=== PATIENT | male | born 1975 | race Caucasian/White ===

== ENCOUNTER 2022-12-30 12:01 | Observation (INO) | payer BC, SELFPAY ==
--- NOTE | ~2022-12-30 | XR_ITS ---
EXAMINATION: XR chest 2V DATE: 12/31/2022 08:06 INDICATION: Rib fractures and pneumothorax TECHNIQUE: frontal and lateral views of the chest were obtained. COMPARISON: Chest radiograph and CT dated 12/30/2022 FINDINGS: Persistent streaky atelectasis at the left lung base. Right lung remains clear. No pleural effusion o r pneumothorax. Heart size is within normal limits for AP technique. Median sternotomy wires and medi astinal surgical clips are seen, likely from prior coronary artery bypass grafting. IMPRESSION: 1. Persistent left basilar atelectasis. No pneumothorax or other acute cardiopulmonary disease. Reviewed, dictated and finalized at location A. IMPRESSION: 1. Persistent left basilar atelectasis. No pneumothorax or other acute cardiopu lmonary disease.
--- NOTE | ~2022-12-30 | XR_ITS ---
EXAMINATION: XR ribs LT 2V DATE: 12/30/2022 12:31 INDICATION: Left chest injury. TECHNIQUE: 2 views of the left ribs on 3 radiographs were obtained. COMPARISON: None. FINDINGS: There is mild atelectasis at left lung base. Cardiomegaly is noted. Median sternotomy wires and mediastinal surgical clips are seen, likely from prior coronary artery bypass grafting. There ar e fractures of left seventh and eighth ribs. IMPRESSION: 1. Fractures of left seventh and eighth ribs. 2. Cardiomegaly. Reviewed, dictated and finalized at location A.
--- NOTE | ~2022-12-30 | CT_ITS ---
EXAMINATION: CT chest abdomen pelvis w con DATE: 12/30/2022 16:11 INDICATION: flank pain, blunt trauma . TECHNIQUE: Computed tomography (CT) of the chest, abdomen, and pelvis was performed with 100 mL Omnip aque-350 intravenous contrast. Automated exposure control and iterative reconstruction technique were employed. The dose-length product was 1892.91 mGy-cm. COMPARISON: X-ray RIBS, same date FINDINGS: CHEST: No thoracic aortic injury. Soft tissue nodularity and stranding in the anterior mediastinum. No pericardial effusion. Status post CABG. Linear scar in the anterior right lower lobe. Subsegmental dependent left upper lobe. Subsegmental le ft lower lobe atelectasis/consolidation. Tiny pleural gas bubble noted medially at the inferior left lower lobe. Small volume left pleural flu id collection. ABDOMEN/PELVIS: No solid organ injury. Hepatic steatosis. No evidence of bowel or mesenteric injury. No free fluid or free air. No retroperitoneal hematoma. Mild atherosclerotic ossifications. Pelvic contents are atraumatic. MUSCULOSKELETAL: Nondisplaced fractures of the left posterior ninth and 10th ribs. Mildly displaced fractures of the l ateral left eighth and ninth ribs. Mild symmetric gynecomastia. No fracture or traumatic malalignment of the thoracic or lumbar spine. IMPRESSION: Subsegmental left basilar opacities may represent atelectasis, contusion, or aspiration in the settin g trauma. Small left pleural effusion. Tiny left medial lower pneumothorax. Anterior mediastinal soft tissue nodularity and stranding may represent residual thymic tissue and/or lymph nodes versus small anterior mediastinal contusion. Mildly displaced left lateral eighth and ninth rib fractures. Nondisplaced left posterior ninth and 1 0th rib fractures. Reviewed, dictated and finalized at location K. IMPRESSION: Subsegmental left basilar opacities may represent atelectasis, contusion, or as piration in the setting trauma. Small left pleural effusion. Tiny left medial lower pneumothorax. Anterior mediastinal soft tissue nodularity and stranding may represent residua l thymic tissue and/or lymph nodes versus small anterior mediastinal contusion. Mildly displaced left lateral eighth and ninth rib fractures. Nondisplaced left posterior ninth and 10th rib fractures.
[2022-12-30 12:05] VITALS: BP 114/68; PULSE 68; RESP 16; TEMP 36.6; O2SAT 100
[2022-12-30 15:20] LABS: Basophils Absolute Auto 0.1 K/mm3 (0.0-0.1); Basophils Percent Auto 0.9 % (0.2-1.2); Eosinophils Absolute Auto 0.6 K/mm3 (0-0.3); Hematocrit 48.1 % (42.0-52.0); Hemoglobin 15.8 g/dL (14.0-18.0); Immature Granulocyte Absolute 0.02 K/mm3 (0.00-0.031); Immature Granulocyte Percent A 0.3 % (0-0.5); Lymphocytes Absolute Auto 2.29 K/mm3 (0.9-3.2); Lymphocytes Percent Auto 32.8 % (18.3-44.2); Mean Corpuscular HGB Conc 32.8 g/dl (32-36); Mean Corpuscular Hemoglobin 30.7 pg (26-34); Mean Corpuscular Volume 93.6 fl (80-100); Mean Platelet Volume 8.7 fl (7.4-10.4); Monocytes Absolute Auto 0.5 K/mm3 (0.1-0.6); Monocytes Percent Auto 7.7 % (2.6-8.5); Neutrophils Absolute Auto 3.5 K/mm3 (1.3-6.7); Neutrophils Percent Auto 49.3 % (45.5-73.1); Platelet Count Result 280 k/mm3 (150-375); Red Blood Count 5.14 M/mm3 (4.6-6.20); Red Cell Distribution Width 13.1 % (11.5-14.5)
[2022-12-30] MEDS: ONDANSETRON INJ 4 MG/2 ML VIAL IV PUSH ×2 (15:23→17:09)
[2022-12-30 15:30] LABS: Alanine Aminotransferase 58 U/L (6-50); Albumin Level 4.5 g/dL (3.5-5.1); Alkaline Phosphatase 123 U/L (38-126); Anion Gap 10 mmol/L (8-16); Aspartate Amino Transferase 45 U/L (17-59); Bilirubin,Total 0.8 mg/dL (0.2-1.3); Blood Urea Nitrogen 12 mg/dL (9-20); Calcium 9.1 mg/dL (8.4-10.2); Carbon Dioxide 25 mmol/L (22-30); Chloride 102 mmol/L (98-107); Estimated CRCL calculation 125 ml/min; Estimated Glomerular Filt Rate > 60; Glucose 111 mg/dL (65-110); Potassium 4.4 mmol/L (3.4-5.0); Prothrombin Time 13.7 Seconds (11.1-14.7); Sodium 137 mmol/L (137-145)
[2022-12-30 15:31] LABS: Partial Thromboplastin Time 28.6 SECONDS (22.3-36.8)
--- NOTE | 2022-12-30 16:38 | ED.FALL ---
HPI - Fall General Chief Complaint: Fall Stated Complaint: fall 8 days ago with rib pain Time Seen by Provider: 12/30/22 14:06 Source: patient and RN notes reviewed Mode of arrival: ambulatory Limitations: no limitations History of Present Illness HPI Narrative: This is a 47 year old male who presents for evaluation of left rib pain. PAtient states he accidentally fell approximately 8 days ago on a folding table that gave out. He fell onto his left side. He reports he had bruising at pain at that time. He has been taking aleve for his pain but his pain worsened today. He states he woke up with difficulty walking due to severe pain. He reports weakness. Related Data Home Medications Medication Instructions Recorded Confirmed aspirin 81 mg tablet,delayed 81 mg PO QAM 12/30/22 12/30/22 release (Adult Low Dose Aspirin) atorvastatin 40 mg tablet 40 mg PO QHS 12/30/22 12/30/22 carvedilol 6.25 mg tablet 6.25 mg PO BID 12/30/22 12/30/22 folic acid 1 mg tablet 1 mg PO QAM 12/30/22 12/30/22 icosapent ethyl 1 gram capsule 2 g PO BID 12/30/22 12/30/22 (Vascepa) lisinopril 10 mg tablet 10 mg PO QAM 12/30/22 12/30/22 Allergies Allergy/AdvReac Type Severity Reaction Status Date / Time tramadol AdvReac Nausea and Verified 12/30/22 12:08 Vomiting Review of Systems Constitutional: Constitutional: Denies weakness Cardiovascular: Cardiovascular: Denies syncope, Denies rapid heart rate, Denies irregular heart rhythm, Denies leg edema and Reports dyspnea Respiratory: Respiratory: Denies chest congestion, Denies hemoptysis, Denies excessive phlegm production and Reports dyspnea Gastrointestinal: Gastrointestinal: Reports abdominal pain, Denies hematochezia, Denies diarrhea and Denies vomiting Genitourinary: Genitourinary: Denies hematuria, Denies dysuria, Denies penile discharge and Denies testicular pain Musculoskeletal: Musculoskeletal: Denies joint swelling, Denies loss of height and Denies muscle weakness Neurologic: Denies syncope, Denies focal weakness and Reports weakness PMFSH Past Medical History Medical History (Updated 12/30/22 @ 23:22 by Jennifer Carver MD) CAD (coronary artery disease) Hypertension Surgical History Surgical History (Updated 12/30/22 @ 16:41 by Jennifer Carver MD) Hx of CABG Social History Social History Smoking status: Never smoker Alcohol intake: current Drinks per week: 6 Other substance usage details: Currently a 6 pack every night. Needs ativan and other prescriptions fille Lack of Transportation: No Lack of Food: Sometimes True Current Housing: I Have Housing Concerned About Future Housing: No Difficulty Paying Gas/Electric Bills: YES Difficulty Paying for Meds: No Currently Unemployed: No Education: Bachelor's Degree Difficulty w/ Childcare or Family Care: No Spiritual care concerns: No Exam Const: General: ill appearing Nutritional Appearance: obese Orientation/consciousness: patient oriented x3 Other: appears to be in pain HENMT: Head: normal to inspection Face and sinus: normal facial exam Eyes: EOM: EOMs intact bilaterally Chest: Chest palpation & inspection: tenderness rib Resp: Effort & Inspection: normal respiratory effort Auscultation: clear to auscultation bilaterally Cardio: Rate: regular rate Rhythm: regular rhythm Heart sounds: no murmurs GI: GI Palp: Yes Soft to palpation, Yes Tenderness to palpation present (GI) (LUQ, LEft flank), Yes Guarding due to palpation present (GI) and No Rigid due to palpation Auscultation: normal bowel sounds Skin: General skin exam: normal color Rashes: no rashes Wounds: no wounds Neuro: General: patient oriented x3, moves all extremities and CN's II-XI intact bilaterally Psych: Mental Status: mental status grossly normal Affect: normal affect Attitude: cooperative Course Reevaluation(s) Reevaluation #1: I Discussed with patient recommendation to be admitt
[2022-12-30 16:40] VITALS: BP 120/85; PULSE 67; RESP 18; TEMP 36.4; O2SAT 98
[2022-12-30] MEDS: HYDROmorphone HCL INJ (*CRX) 1 MG/ML SYR 0.5 MG IV PUSH (17:09)
[2022-12-30 19:30] VITALS: BP 127/65; PULSE 72; RESP 18; O2SAT 98
[2022-12-30 19:55] VITALS: BP 136/93; PULSE 73; RESP 20; TEMP 35.8; O2SAT 100
--- NOTE | 2022-12-30 20:21 | ADMGEN ---
This patient, Armando Marcus, was admitted to [facility] Surg Room 306-02. Patient/family oriented to hospital policies and general routines including ID bracelet, bed and alarms, visiting hours, pain management, procedures, bathroom and other care routines, personal items, smoking policy, room service/diet, and visiting hours. Information on how to activate the Rapid Response Team has been discussed. Patient/Family are encouraged to report perceived risks to care and to ask questions if they do not understand what they are told or what they should do.
[2022-12-30] MEDS: oxyCODONE/ACETAMINOPHEN (*CRX) 5-325 MG TABLET 1 TABLET PO (21:28)
[2022-12-30 23:08] VITALS: PULSE 73; RESP 20; O2SAT 100
[2022-12-31] MEDS: oxyCODONE/ACETAMINOPHEN (*CRX) 5-325 MG TABLET 1 TABLET PO ×3 (02:57→14:44)
--- NOTE | 2022-12-31 04:33 | PM.IMHP ---
H&P: HPI History of Present Illness Date/Time: 12/31/22 04:33 Chief Complaint: Left posterior rib pain Narrative: 47-year-old male with past medical history of morbid obesity, the coronary artery disease status post CABG, hyperlipidemia, and snoring who presented to the ER via EMS due to intractable left posterior rib pain and low back pain. The patient reports that they have a drop table at home and his son had propped up the sides of the drop table so that they would not collapse on the hands like they were supposed 2. The patient stated that he stumbled and landed with his back towards the table. Ever since that time he has been having severe pain in his midback and left ribcage. He has been taking a combination of naproxen, Advil and Tylenol at home. He states he does not know exactly what medications he was taking at home he was is taking the medications that his handed to him. Despite these efforts he was having continued severe pain. He was having difficulty taking a deep breath. He has developed some thick mucus in his posterior oropharynx with some postnasal drip. He reports that he always has some postnasal drip but has not been able to cough it up like he usually could due to they fall in the rib pain. He had been trying to take some Mucinex at home with no significant relief in his symptoms. He is only able to take shallow respirations. He has not had any other preceding symptoms. He denies having any recent chest pain. He is CABG was in 2019. He has been struggling with some anxiety and depression. He reports his brother's children were murdered in 2019 and he had been staying with his brother to help him with his mood and distress but recently came back to stay with his family. Due to his recent social stressors she has gained a significant amount of weight. He does snore and was noted to be snoring quite significantly when I arrived in his room. He has never had a sleep study. He reports that since he moved back to the area from [place] where he was staying with his brother he has not been able to get anyone to prescribe his benzodiazepines. Thus he has been treating his anxiety with alcohol a couple of times a month. However he reports to nursing staff that he is actually drinking a 6 pack per night. Review of Systems Review of Systems: 12 systems were reviewed with pertinent positives and negatives per HPI. Except as documented in the HPI, all other systems were reviewed and are negative. [facility] Past Medical History Medical History Anxiety and depression CAD (coronary artery disease) CHF (congestive heart failure) Hyperlipidemia Hypertension Obesity, morbid, BMI 40.0-49.9 Surgical History Surgical History Hx of CABG (~2019) 4 vessel CABG Family History Family History Other Depression Heart disease Hypertension Social History Social History Social History: Patient lives at home with his of 30 years. He is a lifelong nonsmoker. He has been drinking a 6 pack of beer a day to help cope with his anxiety. He also smokes marijuana somewhat regularly. Smoking status: Never smoker Alcohol intake: current Drinks per week: 6 Substance use: current Substance use type: marijuana Other substance usage details: Currently a 6 pack every night. Needs ativan filled. Lack of Transportation: No Lack of Food: Sometimes True Current Housing: I Have Housing Concerned About Future Housing: No Difficulty Paying Gas/Electric Bills: YES Difficulty Paying for Meds: No Currently Unemployed: No Education: Bachelor's Degree Difficulty w/ Childcare or Family Care: No Spiritual care concerns: No Meds Home Medications and Allergies Home Medications Medicatio
[2022-12-31 06:00] VITALS: BP 111/75; PULSE 79; RESP 20; TEMP 36.3; O2SAT 97
[2022-12-31 06:17] LABS: Hematocrit 46.8 % (42.0-52.0); Hemoglobin 15.1 g/dL (14.0-18.0); Mean Corpuscular HGB Conc 32.3 g/dl (32-36); Mean Corpuscular Hemoglobin 30.5 pg (26-34); Mean Corpuscular Volume 94.5 fl (80-100); Mean Platelet Volume 8.8 fl (7.4-10.4); Platelet Count Result 258 k/mm3 (150-375); Red Blood Count 4.95 M/mm3 (4.6-6.20); Red Cell Distribution Width 13.2 % (11.5-14.5); White Blood Count 6.9 K/mm3 (4.5-10.0)
[2022-12-31 06:32] LABS: Anion Gap 7 mmol/L (8-16); Blood Urea Nitrogen 15 mg/dL (9-20); Calcium 8.7 mg/dL (8.4-10.2); Carbon Dioxide 27 mmol/L (22-30); Chloride 101 mmol/L (98-107); Estimated CRCL calculation 102 ml/min; Estimated Glomerular Filt Rate > 60; Glucose 158 mg/dL (65-110); Potassium 4.2 mmol/L (3.4-5.0); Sodium 135 mmol/L (137-145)
[2022-12-31 07:59] LABS: Glucose Point of Care 136 mg/dl (65-105)
[2022-12-31 08:25] VITALS: PULSE 84
[2022-12-31] MEDS: THIAMINE HCL 100 MG TABLET PO (08:25)
[2022-12-31] MEDS: FOLIC ACID 1 MG TABLET PO (08:25)
[2022-12-31] MEDS: guaiFENesin 12 HR 600 MG TABCR 1200 MG PO (08:25)
[2022-12-31] MEDS: ASPIRIN 81 MG ENTERIC TABLET PO (08:25)
[2022-12-31] MEDS: OMEGA 3 POLYUNSAT FATTY ACIDS 1 GM CAP 2 GM PO (08:25)
[2022-12-31] MEDS: carvediloL 6.25 MG TABLET PO (08:25)
[2022-12-31] MEDS: lisinopriL 10 MG TABLET PO (08:25)
--- NOTE | 2022-12-31 08:48 | PM.IMPN ---
Progress Note: A&P Assessment and Plan (1) Closed rib fracture: Qualifiers: Encounter type: initial encounter Laterality: left Rib fracture type: multiple ribs Qualified Code(s): S22.42XA - Multiple fractures of ribs, left side, initial encounter for closed fracture Code(s): S22.39XA - Fracture of one rib, unspecified side, initial encounter for closed fracture Status: Acute Assessment and Plan: Rib fracture sustained after a fall at home. CT shows mildly displaced left lateral 8th and 9th rib fractures and nondisplaced left posterior 9th and 10th rib fractures. Pain control with Percocet while inpatient. Add on Lidoderm patches Incentive spirometry ordered. (2) Pneumothorax on left: Code(s): J93.9 - Pneumothorax, unspecified Status: Acute Assessment and Plan: CT mentions tidy left medial lower pneumothorax. General surgery consulted Repeat chest x-ray does not mention pneumothorax this morning Patient is not requiring oxygen and vitals are stable (3) Essential hypertension: Code(s): I10 - Essential (primary) hypertension Status: Acute Assessment and Plan: On home agents Coreg and lisinopril Blood pressures have been reviewed and are stable (4) Anxiety and depression: Code(s): F41.9 - Anxiety disorder, unspecified; F32.A - Depression, unspecified Status: Acute Assessment and Plan: Currently not on any depression or anxiety medications States he has been treating his anxiety with alcohol Drinks approximately a six-pack at night per his report CIWA ordered Recommend outpatient follow-up with the PCP for management of depression (5) Snoring: Code(s): R06.83 - Snoring Status: Acute Assessment and Plan: Concerns for DOTTIE Will need outpatient referral for a formal sleep study ApneaLink to be completed tonight if he remains inpatient. Subjective Date/time seen: 12/31/22 08:48 Interval history: This is a 47-year-old male with a past medical history of morbid obesity, CAD status post CABG in 2019, hyperlipidemia and concerns for DOTTIE who presented to the ER via EMS due to intractable left posterior rib pain and low back pain. He reports a fall earlier this week falling on to his back onto a table and since then he has had severe pain in his midback and left ribcage. He has been treating the pain at with a combination naproxen, Advil and Tylenol. He has been having trouble taking deep breaths. He reports thick mucus in his posterior oropharynx with some postnasal drip. He also reports anxiety related to family stressors. He states he used to be on benzodiazepines but after moving back to this area he has not found a provider willing to prescribe them. Because of this he drinks to control his anxiety. He tells the nursing staff that he drinks a six-pack per night. CT abdomen pelvis in the ER show subsegmental left basilar opacities may represent atelectasis, contusion, or aspiration, small left pleural effusion, tiny left medial lower pneumothorax, anterior mediastinal soft tissue nodularity, and mildly displaced left lateral 8th and 9th rib fractures as well as nondisplaced left posterior 9th and 10th rib fractures. His lab work is essentially unremarkable and his vital signs are stable. Repeat chest x-ray this morning does not show pneumothorax, however prior to x-rays did not mention pneumothorax and only after CT did we have that diagnosis. General surgery was consulted in the ER who recs are appreciated. Interval history: 12/31- Review of Systems Review of Systems: All systems reviewed & are unremarkable except as noted in HPI and below Exam Narrative: General: well appearing, well developed, well nourished, appears stated age. HEENT: normocephalic, atraumatic. Mucous membranes moist. EOMI, PERRLA, bilateral sclera anicteric, no conjunctival injection. Neck supple without JVD, lymphadenopathy, or bru
--- NOTE | 2022-12-31 09:26 | PM.CNGS ---
Assessment and Plan Assessment and plan (1) Pneumothorax on left: Code(s): J93.9 - Pneumothorax, unspecified Status: Acute Assessment and Plan: CT confirmed tiny left medial lower pneumothorax secondary to fall/rib fractures. IS ordered. Patient remained stable overnight. Repeat chest x-ray this morning showed no pneumothorax. Okay from our standpoint to discharge the patient today with outpatient follow-up with [facility] trauma. (2) Closed rib fracture: Qualifiers: Encounter type: initial encounter Laterality: left Rib fracture type: multiple ribs Qualified Code(s): S22.42XA - Multiple fractures of ribs, left side, initial encounter for closed fracture Code(s): S22.39XA - Fracture of one rib, unspecified side, initial encounter for closed fracture Status: Acute Assessment and Plan: Left lateral 8th/9th rib fractures, posterior 9th/10th rib fractures on CT. (3) Hx of CABG: Onset Date: ~2019 Code(s): Z95.1 - Presence of aortocoronary bypass graft Status: Chronic Assessment and Plan: 4-vessel CABG in 2020 Plan I have discussed the patient's case and plan of care with Dr. Lopez. History of Present Illness Consult details Consult date: 12/31/22 Reason for consult: other (Pneumothorax) Requesting physician: Jennifer Carver MD Narrative: This is a 47-year-old man with history of coronary artery disease status post CABG, hyperlipidemia, and obesity, who presented to the ER via EMS due to intractable left posterior rib pain and low back pain. About a week ago, he had tripped at home and fell on a collapsible TV tray table. He fell on the tray table on his left side. Initially after, he noticed left lateral and posterior rib pain that was aggravated by deep breathing. He thought this would improve with time. Then, yesterday he reports his pain significantly worsened to the point that he was unable to stand up independently. He then messaged his to call EMS. In the ER, he had rib x-rays that showed fractures of left seventh and eighth ribs. CT chest abdomen pelvis showed subsegmental left basilar opacities, small left pleural effusion, tiny left medial lower pneumothorax, anterior mediastinal soft tissue nodularity and stranding, and mildly displaced left lateral eighth and ninth rib fractures, nondisplaced left posterior ninth and tenth rib fractures. The ER physician spoke with trauma at [place], who recommended the patient be admitted for observation and pain control with repeat imaging in the morning. They recommended outpatient follow-up if pneumothorax remained stable. The patient was admitted to the hospitalist. Our service was consulted for the tiny left pneumothorax. The patient is seen this morning. Vital signs remained stable overnight. He is on room air with stable oxygen saturations. Denies shortness of breath or difficulty breathing. He reports it is difficult to take a deep breath due to the rib pain. No previous pneumothorax. He is a lifelong nonsmoker. Review of Systems Review of Systems: All systems reviewed & are unremarkable except as noted in HPI and below PMFSH Past Medical History Medical History Anxiety and depression CAD (coronary artery disease) CHF (congestive heart failure) Hyperlipidemia Hypertension Obesity, morbid, BMI 40.0-49.9 Surgical History Surgical History (Updated 12/31/22 @ 09:37 by YANELY Pierce) Hx of CABG (~2019) 4 vessel CABG Family History Family History Other Depression Heart disease Hypertension Social History Social History Social History: Patient lives at home with his of 30 years. He is a lifelong nonsmoker. He has been drinking a 6 pack of beer a day to help cope with his anxiety. He also smokes marijuana somew
[2022-12-31 11:45] LABS: Glucose Point of Care 171 mg/dl (65-105)
[2022-12-31 12:00] VITALS: PULSE 76
[2022-12-31 14:00] VITALS: BP 125/70; PULSE 87; RESP 14; TEMP 36.6; O2SAT 98
--- NOTE | 2022-12-31 14:43 | PM.DS ---
DS: Admitting Diagnosis Discharge Date 12/31 Admitting Diagnosis rib fractures DS: Discharge Diagnosis Discharge Diagnosis (1) Closed rib fracture: Qualifiers: Encounter type: initial encounter Laterality: left Rib fracture type: multiple ribs Qualified Code(s): S22.42XA - Multiple fractures of ribs, left side, initial encounter for closed fracture Code(s): S22.39XA - Fracture of one rib, unspecified side, initial encounter for closed fracture Status: Acute (2) Pneumothorax on left: Code(s): J93.9 - Pneumothorax, unspecified Status: Acute (3) Essential hypertension: Code(s): I10 - Essential (primary) hypertension Status: Acute (4) Anxiety and depression: Code(s): F41.9 - Anxiety disorder, unspecified; F32.A - Depression, unspecified Status: Acute (5) Snoring: Code(s): R06.83 - Snoring Status: Acute Plan Assessment and Plan (1) Closed rib fracture: ?Qualifiers: ?Encounter type:?initial encounter??Laterality:?left??Rib fracture type:?multiple ribs? Qualified Code(s):?S22.42XA - Multiple fractures of ribs, left side, initial encounter for closed fracture ?Code(s): S22.39XA - Fracture of one rib, unspecified side, initial encounter for closed fracture ?Status:?Acute ?Assessment and Plan: Rib fracture sustained after a fall at home.? CT shows mildly displaced left lateral 8th and 9th rib fractures and nondisplaced left posterior 9th and 10th rib fractures. Pain control with Percocet while inpatient. Add on Lidoderm patches Incentive spirometry ordered. (2) Pneumothorax on left: ?Code(s): J93.9 - Pneumothorax, unspecified ?Status:?Acute ?Assessment and Plan: CT mentions tidy left medial lower pneumothorax. General surgery consulted Repeat chest x-ray does not mention pneumothorax this morning Patient is not requiring oxygen and vitals are stable(3) Essential hypertension: ?Code(s): I10 - Essential (primary) hypertension ?Status:?Acute ?Assessment and Plan: On home agents Coreg and lisinopril Blood pressures have been reviewed and are stable(4) Anxiety and depression: ?Code(s): F41.9 - Anxiety disorder, unspecified; F32.A - Depression, unspecified ?Status:?Acute ?Assessment and Plan: Currently not on any depression or anxiety medications States he has been treating his anxiety with alcohol Drinks approximately a six-pack at night per his report CIWA ordered Recommend outpatient follow-up with the PCP for management of depression(5) Snoring: ?Code(s): R06.83 - Snoring ?Status:?Acute ?Assessment and Plan: Concerns for DOTTIE Will need outpatient referral for a formal sleep study ApneaLink to be completed tonight if he remains inpatient. DS: Summary Hospital Course Hospital Course: Interval history: This is a 47-year-old male with a past medical history of morbid obesity, CAD status post CABG in 2019, hyperlipidemia and concerns for DOTTIE who presented to the ER via EMS due to intractable left posterior rib pain and low back pain.? He reports a fall earlier this week falling on to his back onto a table and since then he has had severe pain in his midback and left ribcage.? He has been treating the pain at with a combination naproxen, Advil and Tylenol.? He has been having trouble taking deep breaths.? He reports thick mucus in his posterior oropharynx with some postnasal drip.? He also reports anxiety related to family stressors.? He states he used to be on benzodiazepines but after moving back to this area he has not found a provider willing to prescribe them.? Because of this he drinks to control his anxiety.? He tells the nursing staff that he drinks a six-pack per night.? CT abdomen pelvis in the ER show subsegmental left basilar opacities may represent atelectasis, contusion, or aspiration, small left pleural effusion, tiny left medial lower pneumothorax, anterior me
[2022-12-31] MEDS: LIDOCAINE 5% PATCH 2 PATCH TRANSDERM (14:44)
[2022-12-31 16:00] VITALS: PULSE 80
== END 2022-12-31 16:40 | disposition home or self-care (01) ==
LOC: ANHED 19:53 → ANH3MEDSUR 22:10
PROVIDERS: Chiropractor; Admitting Provider Internal Medicine; Emergency Provider General Practice; Visit Provider Student in an Organized Health Care Education/Training Program
DX: S22.42XA Multiple fractures of ribs, left side, initial encounter for closed fracture (principal); W18.39XA Other fall on same level, initial encounter; Y93.9 Activity, unspecified; J93.9 Pneumothorax, unspecified; F41.9 Anxiety disorder, unspecified; F32.A Depression, unspecified; R06.83 Snoring; I25.10 Atherosclerotic heart disease of native coronary artery without angina pectoris; Z95.1 Presence of aortocoronary bypass graft; E78.5 Hyperlipidemia, unspecified; I11.0 Hypertensive heart disease with heart failure; I50.9 Heart failure, unspecified; K59.00 Constipation, unspecified; E66.01 Morbid (severe) obesity due to excess calories; Z68.41 Body mass index [BMI] 40.0-44.9, adult; F10.90 Alcohol use, unspecified, uncomplicated; F12.90 Cannabis use, unspecified, uncomplicated; Z79.82 Long term (current) use of aspirin; Z79.891 Long term (current) use of opiate analgesic; Z79.899 Other long term (current) drug therapy; Z81.8 Family history of other mental and behavioral disorders; Z82.49 Family history of ischemic heart disease and other diseases of the circulatory system
CPT/HCPCS: 36415; 71046; 71100; 71260; 74177; 80048; 80053; 82948; 85025; 85027; 85610; 85730; 96374; 96375; 96376; 99285; A9270; G0378; J1170; J1650; J2405; Q9967

== ENCOUNTER 2023-02-06 14:36 | Emergency (ER) | payer BC, SELFPAY ==
--- NOTE | ~2023-02-06 | CT_ITS ---
EXAMINATION: CTA chest DATE: 02/06/2023 16:40 INDICATION: Chest and left shoulder pain. TECHNIQUE: Computed tomographic angiography (CTA) of the chest was performed without and with 100 mL Omnipaque-350 intravenous contrast. Automated exposure control and iterative reconstruction technique were employed. The dose-length product was 1079.21 mGy-cm. COMPARISON: 12/30/2022 FINDINGS: Mild discoid atelectasis at the lingula. No suspicious pulmonary nodules, pneumonia, pulmonary edema or pleural effusion. Heart size is normal. Atherosclerotic coronary artery calcification. Postoperati ve change of prior median sternotomy and coronary artery bypass grafting. No pericardial effusion. Th oracic aorta is normal in caliber with no dissection. Although not performed as a dedicated pulmonary embolism protocol there is excellent contrast desiccation of the pulmonary arteries which demonstrat es no pulmonary embolism. Stable appearance of stranding and several nodular soft tissue densities me asuring up to 1 cm in maximal diameter in the anterior mediastinum which could represent scarring and mild reactive lymphadenopathy related to the prior median sternotomy and coronary artery bypass madie ting or thymic tissue in the setting of rebound thymic hyperplasia. No new or enlarging thoracic lymp hadenopathy. Diffuse hepatic steatosis. The visualized upper abdomen is otherwise unremarkable. Mild bilateral gynecomastia. Mild thoracic spondylosis. Subacute fractures of the lateral left eighth and ninth ribs and nondisplaced posterior left ninth and 10th with small amount of associated not yet joo idly bridging callus formation. IMPRESSION: 1. No aortic dissection or other acute cardiopulmonary disease. 2. Stable appearance of stranding and nodular soft tissue densities in the anterior mediastinum which could represent postoperative scarring and mild likely reactive lymphadenopathy or thymic tissue in setting of rebound thymic hyperplasia. 3. Healing subacute fractures of the lateral left eighth and ninth and posterior ninth and 10th ribs. Reviewed, dictated and finalized at location A. IMPRESSION: 1. No aortic dissection or other acute cardiopulmonary disease. 2. Stable appearance of stranding and nodular soft tissue densities in the ante rior mediastinum which could represent postoperative scarring and mild likely r eactive lymphadenopathy or thymic tissue in setting of rebound thymic hyperplas ia. 3. Healing subacute fractures of the lateral left eighth and ninth and posterio r ninth and 10th ribs.
--- NOTE | ~2023-02-06 | XR_ITS ---
XR chest 2V 02/06/2023 15:08 Indication: Chest pain Procedure: 2 view chest Comparison: 12/31/2022 Findings: Status post median sternotomy for CABG. Borderline heart size. No focal air space disease, pulmonary edema, pleural effusion or suspected pneumothorax. No acute osseous abnormality. Impression: 1: No acute cardiopulmonary disease. Reviewed, dictated and finalized at location A. Impression: 1: No acute cardiopulmonary disease.
--- NOTE | 2023-02-06 14:37 | ECG_ITS ---
Measurements Intervals [place] Rate: 86 P: 29 NV: 213 QRS: 18 QRSD: 118 T: 100 QT: 361 QTc: 434 Interpretive Statements SINUS RHYTHM WITH SINUS ARRHYTHMIA WITH FIRST DEGREE AV BLOCK INCOMPLETE RIGHT BUNDLE BRANCH BLOCK BORDERLINE R WAVE PROGRESSION, ANTERIOR LEADS INFERIOR INFARCT, AGE INDETERMINATE ABNORMAL ECG NO PREVIOUS ECG AVAILABLE FOR COMPARISON Electronically Signed On 02-06-2023 15:13:44 CDT by Mike Brandon D.O.
[2023-02-06 14:43] VITALS: BP 135/94; PULSE 76; RESP 18; TEMP 36.4; O2SAT 98
[2023-02-06 14:56] VITALS: BP 179/116; PULSE 87; RESP 15; O2SAT 99
[2023-02-06] MEDS: ASPIRIN 81 MG CHEWABLE TABLET 324 MG PO (15:03)
[2023-02-06 15:07] LABS: Basophils Percent Auto 0.3 % (0.2-1.2); Eosinophils Absolute Auto 0.1 K/mm3 (0-0.3); Eosinophils Percent Auto 0.7 % (0-4.4); Hematocrit 52.6 % (42.0-52.0); Hemoglobin 17.7 g/dL (14.0-18.0); Immature Granulocyte Absolute 0.02 K/mm3 (0.00-0.031); Immature Granulocyte Percent A 0.2 % (0-0.5); Lymphocytes Absolute Auto 2.07 K/mm3 (0.9-3.2); Lymphocytes Percent Auto 21.8 % (18.3-44.2); Mean Corpuscular HGB Conc 33.7 g/dl (32-36); Mean Corpuscular Hemoglobin 30.3 pg (26-34); Mean Corpuscular Volume 89.9 fl (80-100); Mean Platelet Volume 9.4 fl (7.4-10.4); Monocytes Absolute Auto 0.7 K/mm3 (0.1-0.6); Monocytes Percent Auto 7.3 % (2.6-8.5); Neutrophils Absolute Auto 6.6 K/mm3 (1.3-6.7); Neutrophils Percent Auto 69.7 % (45.5-73.1); Platelet Count Result 276 k/mm3 (150-375); Red Blood Count 5.85 M/mm3 (4.6-6.20); White Blood Count 9.5 K/mm3 (4.5-10.0)
[2023-02-06 15:16] LABS: INR 1.1; Prothrombin Time 14.6 Seconds (11.1-14.7)
[2023-02-06 15:17] LABS: Partial Thromboplastin Time 25.6 SECONDS (22.3-36.8)
--- NOTE | 2023-02-06 15:19 | ED.CHESTPAIN ---
HPI - Chest Pain General Chief Complaint: Chest Pain Stated Complaint: chest pain Time Seen by Provider: 02/06/23 15:02 History of Present Illness HPI narrative: Patient is a 47-year-old male who presents to the emergency department at this afternoon complaining of a chest pain which started yesterday. Patient is also complaining of left arm numbness which he states started this morning when he woke up around 7 AM. Patient admits that he does have a history of coronary artery disease and has had a CABG in August 2019. He follows up with a transplant nurse through an outside facility and sees him regularly. Patient is currently denying any blood thinner use. He was administered a full dose oral chewable aspirin prior to arrival. Patient admits to mild shortness of breath but denies any nausea, vomiting, abdominal pain, dysuria, hematuria, constipation, diarrhea, melena, hematochezia, fevers or chills. He also denies any headaches, dizziness, lightheadedness, blurry visions, dizziness, focal weakness, numbness and or tingling. There are no other modifying, alleviating, or precipitating factors at this time. Related Data Home Medications Medication Instructions Recorded Confirmed aspirin 81 mg tablet,delayed 81 mg PO QAM 12/30/22 12/30/22 release (Adult Low Dose Aspirin) atorvastatin 40 mg tablet 40 mg PO QHS 12/30/22 12/30/22 carvedilol 6.25 mg tablet 6.25 mg PO BID 12/30/22 12/30/22 folic acid 1 mg tablet 1 mg PO QAM 12/30/22 12/30/22 icosapent ethyl 1 gram capsule 2 g PO BID 12/30/22 12/30/22 (Vascepa) lisinopril 10 mg tablet 10 mg PO QAM 12/30/22 12/30/22 Allergies Allergy/AdvReac Type Severity Reaction Status Date / Time tramadol AdvReac Nausea and Verified 02/06/23 14:37 Vomiting Review of Systems Review of Systems: All systems are reviewed and are negative unless stated otherwise in the HPI. [facility] Past Medical History Medical History Anxiety and depression CAD (coronary artery disease) CHF (congestive heart failure) Hyperlipidemia Hypertension Obesity, morbid, BMI 40.0-49.9 Surgical History Surgical History Hx of CABG (~2020) 4 vessel CABG Family History Family History Other Depression Heart disease Hypertension Social History Social History Social History: Patient lives at home with his of 30 years. He is a lifelong nonsmoker. He has been drinking a 6 pack of beer a day to help cope with his anxiety. He also smokes marijuana somewhat regularly. Smoking status: Never smoker Alcohol intake: current Drinks per week: 6 Substance use: current Substance use type: marijuana Other substance usage details: Currently a 6 pack every night. Needs ativan filled. Lack of Transportation: No Lack of Food: Sometimes True Current Housing: I Have Housing Concerned About Future Housing: No Difficulty Paying Gas/Electric Bills: YES Difficulty Paying for Meds: No Currently Unemployed: No Education: Bachelor's Degree Difficulty w/ Childcare or Family Care: No Spiritual care concerns: No Exam Narrative: General: Alert, awake, afebrile, in no acute distress. HEENT: PERRL, no rhinorrhea, no post nasal drip, oropharynx clear. Neck: Trachea midline, no JVD, no lymphadenopathy. Cardiovascular: Regular rate and rhythm, no murmurs, rubs or gallops, no peripheral edema. Respiratory: Clear to auscultation bilaterally, no tachypnea, no wheezing, no rhonchi, no rubs, no respiratory distress. Abdomen: Soft, nontender, nondistended, no rebound, no guarding, no peritoneal signs. Musculoskeletal: No joint swelling or deformity, normal muscle tone. Skin: No rashes or petechia, no signs of infection. Psychiatric: Alert and oriented, normal behavior and judgment fo
[2023-02-06 15:31] VITALS: BP 129/99; PULSE 73; RESP 13; O2SAT 96
[2023-02-06 15:59] LABS: Alanine Aminotransferase 91 U/L (6-50); Albumin Level 4.7 g/dL (3.5-5.1); Alkaline Phosphatase 126 U/L (38-126); Anion Gap 13 mmol/L (8-16); Aspartate Amino Transferase 55 U/L (17-59); Bilirubin,Total 1.4 mg/dL (0.2-1.3); Blood Urea Nitrogen 16 mg/dL (9-20); Calcium 9.4 mg/dL (8.4-10.2); Carbon Dioxide 21 mmol/L (22-30); Chloride 101 mmol/L (98-107); Estimated CRCL calculation 109 ml/min; Estimated Glomerular Filt Rate > 60; Glucose 112 mg/dL (65-110); Lipase 104 U/L (23-300); Potassium 4.5 mmol/L (3.4-5.0); Sodium 135 mmol/L (137-145)
[2023-02-06 16:09] LABS: Troponin I < 0.012 ng/mL (0.000-0.034)
[2023-02-06 17:56] VITALS: BP 133/94; PULSE 82; RESP 16; O2SAT 96
[2023-02-06 18:24] VITALS: TEMP 36.6
== END 2023-02-06 18:25 | disposition home or self-care (01) ==
PROVIDERS: Family Medicine; Emergency Provider Emergency Medicine
DX: R07.89 Other chest pain (principal); I25.10 Atherosclerotic heart disease of native coronary artery without angina pectoris; I50.9 Heart failure, unspecified; E78.5 Hyperlipidemia, unspecified; I11.0 Hypertensive heart disease with heart failure; E66.01 Morbid (severe) obesity due to excess calories; Z68.37 Body mass index [BMI] 37.0-37.9, adult; Z95.1 Presence of aortocoronary bypass graft; Z79.82 Long term (current) use of aspirin; I44.0 Atrioventricular block, first degree; I45.10 Unspecified right bundle-branch block; R94.31 Abnormal electrocardiogram [ECG] [EKG]
CPT/HCPCS: 36415; 71046; 71275; 80053; 83690; 84484; 85025; 85610; 85730; 93005; 99284; A9270; Q9967